=== PATIENT | male | born 1965 | race Caucasian/White ===

== ENCOUNTER 2024-02-07 14:12 | Emergency (ER) | payer OTHER, SELFPAY ==
[2024-02-07 14:14] VITALS: BP 128/90; PULSE 74; RESP 16; TEMP 36.8; O2SAT 98
--- NOTE | 2024-02-07 14:18 | ED.SYNCOPE ---
HPI - Syncope General Chief Complaint: Syncope Stated Complaint: fainted today Time Seen by Provider: 02/07/24 14:17 Source: patient Mode of arrival: ambulatory Limitations: no limitations History of Present Illness HPI narrative: Ricardo is a 58-year-old male patient presenting to the clinic today with complaints of a syncopal episode that occurred in the parking lot of his work. He reports that this occurred approximately 1 hour ago. Reports when he got out of his car and started walking into work he became dizzy-unsteady on his feet and fainted. He denied any prior chest pain, shortness breath, or headache prior to this incident. States he just felt dizzy. Denies hitting his head whenever he fall however he lost reality for a few seconds. He denies history diabetes, hypertension, orthostatic hypotension, or cardiac dysrhythmias. States he believes he has hyperlipidemia however he is not taking any medications for this. Related Data Home Medications Medication Instructions Recorded Confirmed escitalopram oxalate 10 mg tablet 10 mg PO DAILY 02/07/24 02/07/24 Allergies Allergy/AdvReac Type Severity Reaction Status Date / Time No Known Allergies Allergy Verified 02/07/24 14:43 Review of Systems Review of Systems: Pertinent positives per HPI. Patient denies any fever, chills, rash, headache, visual changes, cough, runny nose, sore throat, shortness of breath, chest pain, palpitations, nausea, vomiting, diarrhea, constipation, abdominal pain, or any urinary issues. PMFSH Comments At the time of my signature, I reviewed and agree with the nursing past medical, surgical, social, and family history. There is no relevant family history pertinent to the patient complaint. Exam Narrative: General: Well-developed, well nourished, in no apparent distress Head: Normocephalic, atraumatic Eyes: Pupils equally round and reactive to light bilaterally, EOM intact, sclera and conjunctive clear, no discharge, lids normal Ears: TMs intact and clear, ear canals clear, no drainage, grossly hearing normal. Nose: Nares patent, no discharge, no inflammation, no sinus tenderness. Mouth: Oropharynx without lesions or masses, good dentition, MMM. Tongue midline, even rise and fall of uvula Neck: Supple, trachea midline, no enlargement of anterior or posterior cervical nodes, no thyroid masses or goiter palpable. Cardio: Regular rate and rhythm, s1 and s2 normal, no murmur appreciated. Resp: Clear to auscultation bilaterally anteriorly and posteriorly, no rhonchi, rales, wheezing or rubs Musculoskeletal: No deformity, non-tender to palpation, grossly normal range of motion, muscle strength strong and equal, peripheral pulse strong, no edema, no cyanosis, normal gait and station Neuro: Alert and oriented x4 with normal speech, no focal deficits, cranial nerves I through XII intact, muscle strength 5 out of 5, sensation intact bilaterally, Course Course Emergency Course: Portions of this record may have been created with voice recognition software. Level of Care: Express Care Visit Vital Signs Vital signs: Vital Signs Temperature 36.8 C 02/07/24 14:14 Pulse Rate 74 02/07/24 14:14 Respiratory Rate 16 02/07/24 14:14 Blood Pressure 128/90 02/07/24 14:14 Pulse Oximetry 98 02/07/24 14:14 Oxygen Delivery Room Air 02/07/24 14:14 Temperature 36.8 C 02/07/24 14:14 Pulse Rate 74 02/07/24 14:14 Respiratory Rate 16 02/07/24 14:14 Blood Pressure 128/90 02/07/24 14:14 Pulse Oximetry 98 02/07/24 14:14 Oxygen Delivery Room Air 02/07/24 14:14 Vital signs reviewed Transfer Transfered to: [place] [facility]: [facility] Transfer rationale: Syncope Accepting physician: Dr. Tran Transfer comments: via [facility] MDM - Syncope MDM Narrative Medical decision making narrative: At the time of visit patient is resting comfortably on the exam table. Patient appears to be nontoxic. EK
[2024-02-07 14:37] LABS: Glucose Point of Care 134 mg/dl (65-105)
--- NOTE | 2024-02-22 15:53 | PCCARD ---
[facility] COULD NOT FIND EKG TRACING DONE 02/07/24 @ 9344- THEY INDICATED A MACHINE PROBLEM. PATIENT DID NOT BRING A COPY OF THE EKG WITH HIM FROM [facility] FAR A I CAN SEE IT IS NOT SCANNED INTO [facility]. HAVE TO CANCEL EKG ORDER 'NOT DONE' DUE TO NO EKG TRACING.
== END 2024-02-07 14:52 | disposition short-term general hospital (02) ==
PROVIDERS: Emergency Provider Nurse Practitioner Family
DX: R55 Syncope and collapse (principal)
CPT/HCPCS: 82948; 99215; G0463

== ENCOUNTER 2024-02-07 15:12 | Emergency (ER) | payer OTHER, SELFPAY ==
--- NOTE | ~2024-02-07 | CT_ITS ---
EXAMINATION: CT brain wo con DATE: 02/07/2024 15:40 INDICATION: Syncope. TECHNIQUE: Computed tomography (CT) of the head was performed without intravenous contrast. The mA wa s adjusted according to patient size. Iterative reconstruction technique was employed. The dose-lengt h product was 605.33 mGy-cm. COMPARISON: None FINDINGS: There is no intracranial hemorrhage, acute infarction, or abnormal intracranial mass lesion . The ventricles are normal in size. The orbits are normal. There is mild mucosal thickening in the p aranasal sinuses. The mastoid air cells are normal. IMPRESSION: 1. Normal brain. Reviewed, dictated and finalized at location E. IMPRESSION: 1. Normal brain.
--- NOTE | ~2024-02-07 | XR_ITS ---
EXAMINATION: XR chest 2V DATE: 02/07/2024 15:44 INDICATION: Syncope TECHNIQUE: PA and lateral views of the chest were obtained. COMPARISON: None FINDINGS: The lungs are clear with no focal airspace opacities, pulmonary edema, pleural effusion or pneumothor ax. The cardiomediastinal silhouette is normal. Mild thoracic spondylosis. IMPRESSION: 1. No acute cardiopulmonary disease. Reviewed, dictated and finalized at location A.
[2024-02-07 15:19] VITALS: BP 144/93; PULSE 106; RESP 16; TEMP 36.6; O2SAT 97
--- NOTE | 2024-02-07 15:20 | ED.SYNCOPE ---
HPI - Syncope General Chief Complaint: Syncope <TRINH Francis Last Filed: 02/07/24 15:29> Stated Complaint: SYNCOPE <TRINH Francis Last Filed: 02/07/24 15:29> Time Seen by Provider: 02/07/24 15:20 <TRINH Francis Last Filed: 02/07/24 15:29> Focused HPI: Patient is a 58 y/o male who presents to the ED via EMS with report of syncope. Patient reports he began feeling lightheaded this morning around 11am at work. He was then walking across the street to a grocery store when he became lightheaded and had a syncopal episode. States he believe he lost consciousness for a brief second. He was able to get off the ground by myself, then drove to an and was referred here for further evaluation. Patient states he feels woozy and mildly lightheaded still currently. C/o fatigue. Denies LOWRY, focal weakness/numbness, vision changes, speech issues, CP, SOB. Denies cardiac hx, hx of DM. Does admit to increased stress in his life and states he is on lexapro for his depression. States he has had 1 previous episode of syncope last year after fasting for 39 days. Patient ate breakfast this morning and drank 16 oz of water with breakfast. GENERAL: Well-appearing, BMI 33.5, and in no acute distress. HEAD: Normocephalic, atraumatic. EYES: PERRL/EOMI, conjunctiva clear. No nystagmus. CHEST: Clear to auscultation. ?No respiratory distress. HEART: Regular rate and rhythm.? NEURO: ?Alert and oriented x3. Strength 5 of 5 in upper and lower extremities bilaterally. Equal application support consultant strength bilaterally. Cranial nerves 2-12 grossly intact. No pronator drift. Patient screened in triage and initial orders placed.? ?Additional care and disposition to be based upon?diagnostic testing and treatment. <TRINH Francis Last Filed: 02/07/24 15:29> Source: patient <TRINH Francis Last Filed: 02/07/24 15:29> Mode of arrival: EMS <Carli Amaya PA-C - Last Filed: 02/07/24 15:29> Limitations: no limitations <TRINH Francis Last Filed: 02/07/24 15:29> Related Data Home Medications: Home Medications Medication Instructions Recorded Confirmed escitalopram oxalate 10 mg tablet 10 mg PO DAILY 02/07/24 02/07/24 <TRINH Francis Last Filed: 02/07/24 15:29> Allergies/Adverse Reactions: Allergies Allergy/AdvReac Type Severity Reaction Status Date / Time No Known Allergies Allergy Verified 02/07/24 14:43 <TRINH Francis Last Filed: 02/07/24 15:29> Review of Systems Review of Systems: CONST: No fever. HEENT: No sore throat C/V: No chest pain RESP: No cough GI: No nausea vomiting : No dysuria. M/S: No joint pain. SKIN: No rash. NEURO: Lightheadedness and syncope PSYCH: [No depression] <Jo Salinas MD - Last Filed: 02/07/24 20:05> Exam Narrative: EXAMINATION OF ORGAN SYSTEMS/BODY AREAS: Constitutional: Vital signs per nursing GENERAL:[No acute distress, non-toxic appearing.] HEAD: Normal with no signs of head trauma. EYES: EOMI, conjunctiva normal ENT: Hearing grossly intact LUNGS: Nonlabored breathing. HEART: [Regular rate and rhythm] ABD: [Soft], [non tender to palpation] EXT: Normal range of motion SKIN: [No rashes or lesions.] NEURO: [Alert and oriented x 3. No gross focal sensory or strength deficits.] PSYCH: Normal affect <Jo Salinas MD - Last Filed: 02/07/24 20:05> Course Vital Signs Vital signs: Vital Signs Temperature 98 F 02/07/24 15:19 Pulse Rate 106 H 02/07/24 15:19 Respiratory Rate 16 02/07/24 15:19 Blood Pressure 144/93 H 02/07/24 15:19 Pulse Oximetry 97 02/07/24 15:19 Oxygen Delivery Room Air 02/07/24 15:19 Temperature 98 F 02/07/24 15:19 Pulse Rate 67 02/07/24 19:16 Respiratory Rate 16 02/07/24 19:16 Blood Pressure 140/94 H 02/07/24 19:16 Pulse Oximetry 96 02/07/24 19:16 Oxygen Delivery Room Air
--- NOTE | 2024-02-07 15:24 | ECG_ITS ---
SEE SCANNED COPY FOR CONFIRMED REPORT MTDD
[2024-02-07 15:38] LABS: Glucose Point of Care 107 mg/dl (65-105)
[2024-02-07 15:40] LABS: Basophils Percent Auto 0.4 % (0.2-1.2); Eosinophils Absolute Auto 0.1 K/mm3 (0-0.3); Eosinophils Percent Auto 0.8 % (0-4.4); Hematocrit 44.8 % (42.0-52.0); Hemoglobin 15.4 g/dL (14.0-18.0); Immature Granulocyte Absolute 0.07 K/mm3 (0.00-0.031); Immature Granulocyte Percent A 0.7 % (0-0.5); Lymphocytes Absolute Auto 3.01 K/mm3 (0.9-3.2); Lymphocytes Percent Auto 30.6 % (18.3-44.2); Mean Corpuscular HGB Conc 34.4 g/dl (32-36); Mean Corpuscular Hemoglobin 32.3 pg (26-34); Mean Corpuscular Volume 93.9 fl (80-100); Mean Platelet Volume 9.3 fl (7.4-10.4); Monocytes Absolute Auto 0.9 K/mm3 (0.1-0.6); Monocytes Percent Auto 9.1 % (2.6-8.5); Neutrophils Absolute Auto 5.8 K/mm3 (1.3-6.7); Neutrophils Percent Auto 58.4 % (45.5-73.1); Platelet Count Result 226 k/mm3 (150-375); Red Blood Count 4.77 M/mm3 (4.6-6.20); Red Cell Distribution Width 13.2 % (11.5-14.5); White Blood Count 9.9 K/mm3 (4.5-10.0)
[2024-02-07 15:50] LABS: INR 0.9; Prothrombin Time 12.9 Seconds (11.1-14.7)
[2024-02-07 15:51] LABS: Alanine Aminotransferase 35 U/L (6-50); Albumin Level 4.9 g/dL (3.5-5.1); Alkaline Phosphatase 64 U/L (38-126); Anion Gap 10 mmol/L (4-12); Aspartate Amino Transferase 42 U/L (17-59); Blood Urea Nitrogen 25 mg/dL (9-20); Calcium 9.7 mg/dL (8.4-10.2); Carbon Dioxide 18 mmol/L (22-30); Chloride 107 mmol/L (98-107); Estimated CRCL calculation 65 ml/min; Estimated Glomerular Filt Rate 48; Glucose 99 mg/dL (65-110); Magnesium 1.8 mg/dL (1.6-2.3); Partial Thromboplastin Time 24.8 Seconds (22.3-36.8); Potassium 3.8 mmol/L (3.4-5.0); Sodium 135 mmol/L (137-145)
[2024-02-07 16:01] LABS: Troponin I < 0.012 ng/mL (0.000-0.034)
[2024-02-07 18:40] VITALS: O2SAT 98
[2024-02-07 18:41] VITALS: BP 139/92; PULSE 60; RESP 12; O2SAT 99
[2024-02-07 18:46] VITALS: BP 136/88; PULSE 59; RESP 10; O2SAT 96
[2024-02-07 19:01] VITALS: BP 128/88; PULSE 60; RESP 14; O2SAT 96
[2024-02-07 19:16] VITALS: BP 140/94; PULSE 67; RESP 16; O2SAT 96
== END 2024-02-07 19:55 | disposition home or self-care (01) ==
PROVIDERS: Physician Assistant; Emergency Provider Emergency Medicine
DX: R55 Syncope and collapse (principal); E86.0 Dehydration; F32.A Depression, unspecified; R94.31 Abnormal electrocardiogram [ECG] [EKG]
CPT/HCPCS: 36415; 70450; 71046; 80053; 82948; 83735; 84484; 85025; 85610; 85730; 93005; 99284